=== PATIENT | male | born 1985 | race Caucasian/White ===

== ENCOUNTER 2019-07-01 13:39 | Inpatient (IN) | payer OTHER ==
[~2019-07-01] VITALS: Ht 172.7 cm; Wt 77.2 kg
[2019-07-01 13:42] VITALS: Ht 172.7 cm; Wt 77.2 kg
[2019-07-01 14:45] LABS: CALCIUM 8.5 mg/dL (8.5-10.1); CARBON DIOXIDE 24.9 mmol/L (21-32); CHLORIDE SERUM 105 mmol/L (98-107); CREATININE SERUM 1.1 mg/dL (0.7-1.3); GFR1 > 60 mL/min; GLUCOSE SERUM 107 mg/dL (74-106); POTASSIUM SERUM 3.4 mmol/L (3.5-5.1); SODIUM SERUM 142 mmol/L (136-145)
[2019-07-01 14:46] LABS: BASOPHIL % 0.4 % (0-2); PLATELET COUNT 383 x10^3mcL (130-400); RED CELL DISTRIBUTION WIDTH 13.4 % (11.5-14.5)
[2019-07-01 14:53] LABS: ALBUMIN 3.7 g/dL (3.4-5.0); ALKALINE PHOSPHATASE 73 U/L (46-116); ALT/SGPT 33 U/L (16-63); AST/SGOT 18 U/L (15-37); BILIRUBIN TOTAL 0.4 mg/dL (0.20-1.00); TOTAL PROTEIN, SERUM 7.5 g/dL (6.4-8.2)
[2019-07-01 16:25] LABS: microscopic required? NO
[2019-07-01 16:31] LABS: UA SPECIFIC GRAVITY 1.015 (1.005-1.035); urine erythrocyte NEGATIVE (NEGATIVE)
[2019-07-01 17:05] LABS: AMPHETAMINE QUAL UR NONE DETECTED (See below)
[2019-07-01 19:04] VITALS: BP 122/53
[2019-07-01 21:03] VITALS: BP 110/68
[2019-07-02 05:25] VITALS: BP 105/57
[2019-07-02 07:03] LABS: BASOPHIL % 0.4 % (0-2); PLATELET COUNT 328 x10^3mcL (130-400); RED CELL DISTRIBUTION WIDTH 13.6 % (11.5-14.5)
[2019-07-02 07:15] LABS: FREE T4 0.94 ng/dL (0.76-1.46)
[2019-07-02 07:28] LABS: CALCIUM 8.6 mg/dL (8.5-10.1); CARBON DIOXIDE 26.7 mmol/L (21-32); CHLORIDE SERUM 110 mmol/L (98-107); CHOLESTEROL 172 mg/dL (<200); CHOLESTEROL/HDL RATIO 4.9; CREATININE SERUM 0.9 mg/dL (0.7-1.3); GFR1 > 60 mL/min; GLUCOSE SERUM 88 mg/dL (74-106); HDL CHOLESTEROL 35 mg/dL (40-60); POTASSIUM SERUM 4.4 mmol/L (3.5-5.1); SODIUM SERUM 140 mmol/L (136-145); TRIGLYCERIDES 106 mg/dL (<150)
[2019-07-02 08:36] VITALS: BP 110/75
[2019-07-02 13:47] VITALS: BP 120/70
[2019-07-02 16:38] VITALS: BP 117/67
[2019-07-02 20:57] VITALS: BP 102/68
[2019-07-03 05:51] VITALS: BP 134/56
[2019-07-03 06:38] LABS: CALCIUM 8.9 mg/dL (8.5-10.1); CARBON DIOXIDE 28.3 mmol/L (21-32); CHLORIDE SERUM 106 mmol/L (98-107); CREATININE SERUM 1.1 mg/dL (0.7-1.3); GFR1 > 60 mL/min; GLUCOSE SERUM 82 mg/dL (74-106); MAGNESIUM 1.9 mg/dL (1.8-2.4); POTASSIUM SERUM 3.7 mmol/L (3.5-5.1); SODIUM SERUM 142 mmol/L (136-145)
[2019-07-03 06:48] LABS: BASOPHIL % 0.7 % (0-2); PLATELET COUNT 344 x10^3mcL (130-400); RED CELL DISTRIBUTION WIDTH 13.4 % (11.5-14.5)
[2019-07-03 08:52] VITALS: BP 114/80
[2019-07-03 13:04] VITALS: BP 125/70
[2019-07-03] MEDS ORDERED: BET80 PO (14:01)
[2019-07-03] MEDS ORDERED: DILTIAZEM30 M1 PO (14:02)
[2019-07-03 14:56] VITALS: BP 125/70
[2019-07-03 16:38] VITALS: BP 137/77
[2019-07-03] MEDS ORDERED: BETAPACE80 MG PO (17:37)
== END 2019-07-03 18:03 | disposition home or self-care (01) | DRG 201 ==
LOC: ED 13:39 → DU 16:50
PROVIDERS: Emergency Medicine; ADMIT Internal Medicine Pulmonary Disease
DX: I48.91 Unspecified atrial fibrillation (principal); E11.9 Type 2 diabetes mellitus without complications; F12.10 Cannabis abuse, uncomplicated; I25.10 Atherosclerotic heart disease of native coronary artery without angina pectoris; I10 Essential (primary) hypertension; Z80.42 Family history of malignant neoplasm of prostate
CPT/HCPCS: 84439; A9500; G0378; G0480; J1650; J2060; J2405; J2785; J3490; J7030; Q0092